=== PATIENT | female | born 1990 ===

== ENCOUNTER → 2022-06-26 | Emergency (ER) ==
[2022-07-12 13:48] LABS: CORONAVIRUS COVID-19 NAA NEGATIVE (NEGATIVE); RESPIRATORY SYNCYTIAL VIR NAA NEGATIVE (NEGATIVE)
[2022-07-13 16:36] LABS: ANION GAP 9.9 meq/L (7-15); CHLORIDE,CL 104 mmol/L (98-107); ESTIMATED GFR 118 mL/min (>=60); SODIUM,NA 140 mmol/L (136-145)
[2022-07-13 16:50] LABS: BARBITURATE SCREEN,URINE NEGATIVE (NEGATIVE); BENZODIAZEPINES SCREEN,URINE NEGATIVE (NEGATIVE); BUPRENORPHINE SCREEN,URINE NEGATIVE (NEGATIVE); EDDP,URINE SCREEN NEGATIVE (NEGATIVE); TCA SCREEN,URINE NEGATIVE (NEGATIVE); THC SCREEN,URINE 50 NG/ML POSITIVE (NEGATIVE)
== END ==
LOC: LL.ED 08:32
DX: R10.10 Upper abdominal pain, unspecified (principal); R11.2 Nausea with vomiting, unspecified; F12.90 Cannabis use, unspecified, uncomplicated; Z20.822 Contact with and (suspected) exposure to COVID-19
CPT/HCPCS: 0241U; 36415; 74019; 74177; 80053; 80305; 81003; 81025; 82150; 83605; 83690; 84484; 85025; 96361; 96372; 96374; 96375; 96376; 99285